=== PATIENT | male | born 1925 | race Caucasian/White ===

== ENCOUNTER 2016-12-10 12:02 | Emergency (ER) | payer OTHER, MEDICARE ==
[~2016-12-10] VITALS: Ht 177.8 cm; Wt 68.0 kg
[~2016-12-10 12:02] MED LIST: ACEON4 MG PO; ACIPHEX 20 MG T20 MG PO; APAP650 PO; ARICEPT 5 MG TAB5 MG PO; ASPIRIN EC81 M1 PO; ATIVAN0.5 MG PO; B-12500 MCG PO; CELEXA 20 MG TA20 MG PO; CELEXA40 MG PO; LEVOTHYROXIN0.025 MG PO; LIPITOR10 MG PO; LOPRESSOR PO; LOPRESSOR25 PO; MINIPRIN81 MG PO; MULTAQ400 MG PO; NAMENDA 10 MG T10 MG PO; NITROGLYCERIN0.4 MG SL; OMEPRAZOLE10 MG PO; OMEPRAZOLE20 MG PO; PRADAXA150 MG PO; PRADAXA75 MG PO
[2016-12-10 12:37] LABS: ABSOLUTE NEUTROPHILS 6.2 thou/uL (1.4-8.2); BASOPHILS 0.6 % (0.0-2.0); EOSINOPHILS 2.6 % (0.0-3.0); HEMOGLOBIN 14.6 gm/dL (14.0-18.0); LYMPHOCYTES 13.6 % (24.0-44.0); MCH 30.2 pg (26.0-34.0); MCV 88.8 fL (80.0-100.0); MONOCYTES 10.9 % (1.0-8.0); PLATELET COUNT 159 thou/uL (150-400); POLYS 72.3 % (36.0-66.0); RBC 4.85 mil/uL (4.50-6.00); RDW 13.9 % (10.5-14.5); WBC 8.6 thou/uL (4.0-11.0)
[2016-12-10 12:42] LABS: MANUAL DIFF NO
[2016-12-10 12:48] LABS: CALCIUM 9.2 mg/dL (8.5-10.1); CREATININE 1.7 mg/dL (0.6-1.3); POTASSIUM 4.5 mmol/L (3.5-5.1)
== END 2016-12-10 13:50 | disposition home or self-care (01) ==
LOC: ER 12:02
PROVIDERS: Emergency Medicine
DX: N28.9 Disorder of kidney and ureter, unspecified (principal); R53.83 Other fatigue; I10 Essential (primary) hypertension; E78.00 Pure hypercholesterolemia, unspecified; K21.9 Gastro-esophageal reflux disease without esophagitis; I48.91 Unspecified atrial fibrillation; Z87.891 Personal history of nicotine dependence; Z88.5 Allergy status to narcotic agent; Z95.5 Presence of coronary angioplasty implant and graft

== ENCOUNTER 2017-04-26 14:52 | Inpatient (IN) | payer OTHER, MEDICARE ==
[~2017-04-26] VITALS: Ht 172.7 cm; Wt 66.9 kg
--- NOTE | ~2017-04-26 | HC ---
[facility] [place] [address] CONSULTATION Name: ÁNGELA ANAYA MEME Room #: 421-P [facility] IN M.R.#: [id number] Admission: 04/26/17 Attend Phys: Kam Piedra Discharge: 04/29/17 Date of : [birth year] Report #: [id number] THIS REPORT FOR: //name// CC: David Piedra DATE OF SERVICE: 04/28/2017 HISTORY OF PRESENT ILLNESS: The patient is an 89-year-old white male premorbid history of dementia, lives in an assisted living facility at [facility]. He was admitted with nausea, vomiting, diarrhea, was noted to be weak and had a fever of 105. Diagnosed with toxic encephalopathy, colitis, dehydration. Apparently, there are a number of other residents from the nursing facility that were diagnosed with norovirus. He is debilitated but improving. We are seeing him in rehabilitation medicine consultation. PAST MEDICAL HISTORY: Includes hypertension, cardiac stent, Alzheimer's. Past medical history also includes GERD, DJD, 2 stents with angioplasty 2 years ago, neuropathy, Raynaud disease, pancreatitis, atrial fibrillation, elevated cholesterol. MEDICATIONS: Please see the full medication listing. ALLERGIES: MORPHINE. SOCIAL HISTORY: Lives at [facility] in the assisted living facility. He was premorbidly independent, ambulatory without a device. He needed help with his hearing aids and for a shower twice a week. He has 4 children that are closely involved. HABITS: Former tobacco smoker, quit greater than a year ago. No history of alcohol abuse. REVIEW OF SYSTEMS: No current complaints of chest pain, shortness of breath, abdominal discomfort. Denied any abdominal discomfort. No headache, bowel or bladder changes. Appears to be feeling better, but is still weak. No focal extremity pain complaints. The exam is somewhat limited with his dementia. PHYSICAL EXAMINATION: Pleasant 89-year-old thin, small statured white male in no obvious distress. Last recorded temperature 97.4, pulse 62, respirations 18, blood pressure 115/58. He is alert, pleasant. HEENT appeared benign. Facies are symmetric. Follows basic 1 step commands. Functional range of motion of both upper extremities with strength grade 4 to 4-/5. DTRs are trace to 1. Lower extremities, no focal calf swelling, functional range of motion with strength grade 4-/5. DTRs are trace to 1. No focal calf swelling. He has been min assist with sit to stand, although at times, he was contact guard. He has [facility] [address] [place] [address] CONSULTATION Name: ÁNGELA ANAYA Room #: 421-P [facility] IN ..#: [id number] Admission: 04/26/17 Attend Phys: Kam Piedra Discharge: 04/29/17 Date of : [birth year] Report #: [id number] been mod assist to ambulate 150 feet with handheld assistance, although he was at one time contact guard assistance. ASSESSMENT: An 89-year-old white male with the following problem list: 1. Generalized weakness and debilitation. 2. Viral flu with colitis. 3. Dehydration, which is improving. 4. Toxic encephalopathy superimposed on his significant premorbid dementia. 5. Hypertension. 6. Cardiac stents. PLAN: The patient unfortunately does not meet [address] inpatient rehabilitation criteria. Note the attending physician's plan for evaluation for custodial facility care. The family are not desiring of this and will more likely arrange for initial 24-hour care for him in the assisted living facility setting. Discussion was held with the patient's son and with case management. Thank you for asking us to assist in this patient's care. <ELECTRONICALLY SIGNED> By: David Enamorado MD 05/05/17 1515 1602 1946 David Enamorado MD /nt
--- NOTE | ~2017-04-26 | EKG ---
[address] [facility] [place] [address] ELECTROCARDIOGRAM REPORT Name: ÁNGELA ANAYA Room #: 421-P ADM IN M.R.#: [id number] Admission: 04/26/17 Attend Phys: Kam Piedra Discharge: Date of : [birth year] Report #: [id number] THIS REPORT FOR: //name// [facility] ED Test Date: 2017-04-26 Test Time: 15:11:17 Pat Name: ÁNGELA ANAYA Department: Room: [facility] Gender: M Pantograph Setter: KKEMMANUEL : 1925 Requested By: Gabriela Del Rosario Order Number: [id number] MD: Yoandy Grady Measurements Intervals [place] Rate: 65 P: 0 NE: 192 QRS: 37 QRSD: 133 T: 16 QT: 528 QTc: 550 Interpretive Statements Sinus rhythm Right bundle branch block Compared to ECG 02/21/2016 14:26:11 First degree AV block no longer present Electronically Signed On 04-26-2017 20:29:52 CDT by Yoandy Grady [email or web address] <ELECTRONICALLY SIGNED> By: Yoandy Grady MD 04/26/172028 10 10 Yoandy Grady MD /CYNTHIA
[2017-04-26 14:53] VITALS: BP 130/57
[2017-04-26 15:21] LABS: HEMATOCRIT 41.9 % (42.0-52.0); HEMOGLOBIN 14.4 gm/dL (14.0-18.0); MCH 30.6 pg (26.0-34.0); MCHC 34.3 g/dL (28.0-37.0); MCV 89.3 fL (80.0-100.0); PLATELET COUNT 154 thou/uL (150-400); RBC 4.69 mil/uL (4.50-6.00); RDW 13.5 % (10.5-14.5); WBC 7.4 thou/uL (4.0-11.0)
[2017-04-26 15:23] LABS: MANUAL DIFF YES
[2017-04-26 15:35] LABS: CALCIUM 9.3 mg/dL (8.5-10.1); CREATININE 1.9 mg/dL (0.7-1.3); POTASSIUM 4.3 mmol/L (3.5-5.1)
[2017-04-26 15:40] LABS: ALBUMIN 3.9 g/dL (3.4-5.0); TOTAL BILIRUBIN 1.1 mg/dL (<0.1-1.0); TOTAL PROTEIN 7.4 g/dL (6.4-8.2)
[2017-04-26 15:52] LABS: ABSOLUTE NEUTROPHILS 6.4 thou/uL (1.4-8.2); TOTAL CELL COUNT 100
[2017-04-26 16:12] LABS: URINE BILIRUBIN NEGATIVE (Negative); URINE BLOOD NEGATIVE (Negative); URINE COLOR YELLOW; URINE GLUCOSE-RANDOM* NEGATIVE (Negative); URINE KETONES 1+ (Negative); URINE NITRITE NEGATIVE (Negative); URINE PROTEIN (DIPSTICK) 1+ (Negative); URINE UROBILINOGEN 0.2 E.U./dl (0.2-1.0)
[2017-04-26 16:18] LABS: HYALINE CASTS 0-3 Few /LPF (None Seen); SQUAMOUS 4-10 Moderate /LPF (0-3)
[2017-04-26 16:19] LABS: BACTERIA None Seen /HPF (None Seen); CRYSTALS None Seen /LPF (None Seen); URINE RBC 0-2 Rare /HPF (0-2); URINE WBC 0-5 Rare /HPF (0-5)
[2017-04-26 18:18] VITALS: BP 106/46
[2017-04-26 19:50] VITALS: BP 113/57
[2017-04-26] MEDS ORDERED: ZYRTEC10 M4 PO (19:50)
[2017-04-26] MEDS ORDERED: HYDROCODON-ACE1 EAC8 PO (19:51)
[2017-04-26] MEDS ORDERED: MONTELUKAST SOD10 MG PO (19:55)
[2017-04-26] MEDS ORDERED: PATADAY2.5 ML INTRAOCULR (20:06)
[2017-04-26 23:53] VITALS: BP 102/51
[2017-04-27 03:51] VITALS: BP 109/54
[2017-04-27 07:25] VITALS: BP 102/53
[2017-04-27 15:20] VITALS: BP 124/56
[2017-04-27 20:00] VITALS: BP 104/56
[2017-04-28 04:52] LABS: ALBUMIN 3.1 g/dL (3.4-5.0); CALCIUM 8.1 mg/dL (8.5-10.1); CREATININE 1.5 mg/dL (0.7-1.3); PHOSPHORUS 2.2 mg/dL (2.5-4.9); POTASSIUM 3.4 mmol/L (3.5-5.1)
[2017-04-28 05:30] VITALS: BP 104/76
[2017-04-28 07:32] VITALS: BP 115/58
[2017-04-28 20:00] VITALS: BP 114/70
[2017-04-29 03:39] VITALS: BP 132/58
[2017-04-29 05:28] LABS: ALBUMIN 2.8 g/dL (3.4-5.0); CALCIUM 7.8 mg/dL (8.5-10.1); CREATININE 1.5 mg/dL (0.7-1.3); PHOSPHORUS 2.9 mg/dL (2.5-4.9); POTASSIUM 3.4 mmol/L (3.5-5.1)
[2017-04-29 07:35] VITALS: BP 131/76
[2017-04-29 10:23] VITALS: BP 131/76
[2017-04-29 10:46] VITALS: BP 131/76
[2017-04-29 14:38] VITALS: BP 131/76
== END 2017-04-29 12:00 | disposition home health service (06) | DRG 871 ==
LOC: ER 14:52 → EROBS 16:37 → 4E 16:37
PROVIDERS: Hospitalist; Physician Assistant
DX: A41.9 Sepsis, unspecified organism (principal); G92 Toxic encephalopathy; N17.9 Acute kidney failure, unspecified; I10 Essential (primary) hypertension; E78.5 Hyperlipidemia, unspecified; I25.5 Ischemic cardiomyopathy; K21.9 Gastro-esophageal reflux disease without esophagitis; M19.90 Unspecified osteoarthritis, unspecified site; G62.9 Polyneuropathy, unspecified; I48.91 Unspecified atrial fibrillation; K52.9 Noninfective gastroenteritis and colitis, unspecified; E86.0 Dehydration; G30.9 Alzheimer's disease, unspecified; F02.80 Dementia in other diseases classified elsewhere, unspecified severity, without behavioral disturbance, psychotic disturbance, mood disturbance, and anxiety; Z66 Do not resuscitate; I73.00 Raynaud's syndrome without gangrene; Z79.899 Other long term (current) drug therapy; Z98.62 Peripheral vascular angioplasty status; Z88.6 Allergy status to analgesic agent; Z87.891 Personal history of nicotine dependence
CPT/HCPCS: 10084

== ENCOUNTER 2017-05-02 10:52 | Inpatient (IN) | payer OTHER, MEDICARE ==
[~2017-05-02] VITALS: Ht 172.7 cm; Wt 67.0 kg
--- NOTE | ~2017-05-02 | EKG ---
[address] [employer] [address] ELECTROCARDIOGRAM REPORT Name: ÁNGELA ANAYA Room #: 216-P ADM IN M.R.#: [id number] Admission: 05/02/17 Attend Phys: Kam Piedra Discharge: Date of : [birth year] Report #: [id number] THIS REPORT FOR: //name// [facility] Test Date: 2017-05-06 Test Time: 07:02:30 Pat Name: ÁNGELA ANAYA Department: Room: 216 P Gender: M Air Drier: pradip : 1925 Requested By: John Yo Order Number: [id number] MD: John Yo Measurements Intervals [place] Rate: 101 P: [place]: QRS: 45 QRSD: 137 T: -35 QT: 439 QTc: 570 Interpretive Statements Atrial fibrillation Right bundle branch block Baseline wander in lead(s) V3 Compared to ECG 05/05/2017 09:18:04 No significant change was found Electronically Signed On 05-06-2017 8:45:47 CDT by John Yo [email or web address] <ELECTRONICALLY SIGNED> By: John Yo MD, [facility] 05/06/17 0845 1 1 John Yo MD, [facility] /EPI
--- NOTE | ~2017-05-02 | 2DMMODE ---
[facility] [address] [place] [address] 2 D/M-MODE ECHOCARDIOGRAM Name: ÁNGELA ANAYA Room #: 216-P ADM IN M.R.#: [id number] Admission: 05/02/17 Attend Phys: Kam Reilly Discharge: Date of : [birth year] Date of Service: 05/06/17 0937 Report #: [id number] THIS REPORT FOR: //name// APPROVED REPORT Study performed: 05/06/2017 07:43:38 EXAM: Comprehensive 2D, Doppler, and color-flow Echocardiogram Patient Location: Bedside Room #: 216 Status: routine Other Information Study Quality: Adequate Indications CHF, aortic stenosis. Hx: ISCM, stents, Afib, HTN, HLP, tobacco abuse 2D Dimensions RVDd: 40.86 mm LVEF(%): 62.25 (>50%) IVSd: 9.99 (7-11mm) LVOT Diam: 20.76 (18-24mm) LVDd: 36.93 mm PWd: 9.99 (7-11mm) Ascending Ao: 32.08 (22-36mm) LVDs: 24.78 (25-40mm) Aortic Root: 36.12 mm Savage's LVEF: 62.25 % Volumes Left Atrial Volume (Systole) Single Plane 4CH: 66.79 mL Single Plane 2CH: 57.74 mL LA ESV Index: 37.00 mL/m2 Aortic Valve AoV Peak Shayan.: 3.08 m/s AO Peak Gr.: 38.39 mmHg LVOT Max P.77 mmHg AO Mean Gr.: 22.59 mmHg AO V2 Mean: 2.26 m/s LVOT Max V: 0.83 m/s AO V2 VTI: 52.21 cm DIMITRIOS Vmax: 0.91 cm2 Mitral Valve MV Decel. Time: 162.51 ms MV E Max Shayan.: 1.00 m/s [facility] [place] [address] 2 D/M-MODE ECHOCARDIOGRAM Name: ÁNGELA ANAYA Room #: 216-P [facility] IN M.R.#: [id number] Admission: 05/02/17 Attend Phys: Kam Reilly Discharge: Date of : [birth year] Date of Service: 05/06/17 0937 Report #: [id number] Pulmonary Valve PV Peak Shayan.: 1.07 m/s PV Peak Gr.: 4.61 mmHg Tricuspid Valve TR Peak Shayan.: 3.03 m/s RAP Estimate: 5.00 mmHg TR Peak Gr.: 37.22 mmHg PA Pressure: 42.00 mmHg Left Ventricle The left ventricle is normal size. There is normal left ventricular wall thickness. Left ventricular systolic function is normal. LVEF is 55-60%. This study is not technically sufficient to allow evaluation of the LV diastolic function due to atrial fibrillation. Right Ventricle Right ventricle is mildly dilated. Atria Left atrium is dilated. PFO is noted. Right atrium is dilated. Aortic Valve Aortic valve is severely calcified. No aortic regurgitation is present. There is severe valvular aortic stenosis. Calculated aortic valve area is 0.9 cm2 with maximum pressure gradient of 39 mmHg and mean pressure gradient of 23 mmHg. Mitral Valve Mitral valve leaflets are mildly thickened. Mild mitral annular calcification. Trace mitral regurgitation. No evidence of mitral valve stenosis. Tricuspid Valve The tricuspid valve is normal in structure. There is moderate tricuspid regurgitation. The right atrial pressure is estimated at 5 mmHg. There is moderate pulmonary hypertension with an estimated PAP of 42mmHg. Pulmonic Valve The pulmonary valve is normal in structure. Trace pulmonic regurgitation. Great Vessels The aortic root is normal in size. IVC is normal in size and collapses >50% with inspiration. [facility] [address] [place] [address] 2 D/M-MODE ECHOCARDIOGRAM Name: ÁNGELA ANAYA Room #: 216-P [facility] IN ..#: [id number] Admission: 05/02/17 Attend Phys: Kam Reilly Discharge: Date of : [birth year] Date of Service: 05/06/17 0937 Report #: [id number] Pericardium There is no pericardial effusion. <Conclusion> Left ventricular systolic function is normal. LVEF is 55-60%. Both atria are dilated. RV is mildly dilated Aortic valve is severely calcified and stenotic. Calculated aortic valve area is 0.9 cm2 with maximum pressure gradient of 39 mmHg and mean pressure gradient of 23 mmHg. Mitral valve leaflets are mildly thickened. Mild mitral annular calcification. PFO is noted. Pulmonary artery pressure of 40-45mmHg There is no pericardial effusion. <ELECTRONICALLY SIGNED> By: John Yo MD, [facility] 05/06/1737 6 John Yo MD, FACC /INF
--- NOTE | ~2017-05-02 | HC ---
[facility] [place] [address] [place] [address] CONSULTATION Name: HÉCTORÁNGELA MEME Room #: 216-P ADM IN M.R.#: [id number] Admission: 05/02/17 Attend Phys: Kam Piedra Discharge: Date of : [birth year] Report #: [id number] THIS REPORT FOR: //name// CC: David Piedra DATE OF SERVICE: 05/05/2017 DATE OF SERVICE: 05/05/2017 REASON FOR CONSULTATION: Acute respiratory failure. IMPRESSION: 1. Acute respiratory failure, possible congestive heart failure, possible aspiration pneumonia. 2. Pleural effusion, right greater than left. 3. Atrial fibrillation. 4. Bzxvf-zr-xnwllte congestive heart failure. 5. Aortic stenosis, severe. 6. Coronary artery disease with stent. 7. Abdominal pain, improved. 8. Hypertension. 9. History of transient ischemic attack. 10. Dementia. PLAN: Continue aerosol therapy, may use BiPAP at night and p.r.n. Discussed with daughters at bedside. We will do aerosol therapy. We will do thoracentesis in a.m. if stable. I have seen twice this morning and this evening. DVT prophylaxis. HISTORY OF PRESENT ILLNESS: A very pleasant 89-year-old male comes in with progressive shortness breath, cough, possible aspiration pneumonia, has been treated for this morning and had rapid atrial fib, decompensated, transferred down to the CCU. PAST MEDICAL HISTORY: 1. Coronary artery disease with stent. 2. Paroxysmal atrial fibrillation. 3. Severe aortic stenosis. 4. Dementia. 5. Moderate carotid disease. 6. History of tachy-gabo. 7. History of TIA. ALLERGIES: MORPHINE and AMIODARONE. [facility] [address] [place] [address] CONSULTATION Name: ÁNGELA ANAYA Room #: 216-P [facility] IN M.R.#: [id number] Admission: 05/02/17 Attend Phys: Kam Piedra Discharge: Date of : [birth year] Report #: [id number] MEDICATIONS: List was reviewed. SOCIAL HISTORY: By report lived at [facility] in the past. FAMILY HISTORY: Noncontributory. SOCIAL HISTORY: Quit smoking greater than 50 years ago. Negative significant EtOH. REVIEW OF SYSTEMS: Shortness of breath, cough. No hemoptysis, hematemesis or hematuria. Positive edema and dementia. PHYSICAL EXAMINATION: VITAL SIGNS: T-max 100.3, pulse 130s, respirations 20s, BP 157/93. EYES: Negative icterus. NECK: Negative JVD. LUNGS: Showed coarse crackles bilateral. CARDIOVASCULAR: , tachy. ABDOMEN: Bowel sounds present. EXTREMITIES: Showed no calf tenderness. Moved all extremities. LABORATORY DATA: Urine legionella and strep negative. Lactate 24. ProBNP 11,068, INR 1.1. A pH 7.49, pCO2 of 31, pO2 [address] PE protocol showed no emboli. Emphysematous changes. By: 1833 0022 Lucina Phillips MD /jeremias
--- NOTE | ~2017-05-02 | EKG ---
[address] [address] ELECTROCARDIOGRAM REPORT Name: ÁNGELA ANAYA MEME Room #: 216-P ADM IN M.R.#: [id number] Admission: 05/02/17 Attend Phys: Kam Piedra Discharge: Date of : [birth year] Report #: [id number] THIS REPORT FOR: //name// [facility] Test Date: 2017-05-05 Test Time: 09:18:04 Pat Name: ÁNGELA ANAYA Department: Room: 216 Gender: Supervisor Electronics Inspection: Ernestina MCCALUEY : 1925 Requested By: Kam Piedra Order Number: [id number] MD: Yoandy Grady Measurements Intervals [place] Rate: 114 P: [place]: QRS: 45 QRSD: 126 T: -7 QT: 363 QTc: 501 Interpretive Statements Atrial fibrillation Right bundle branch block ST depr, consider ischemia, anterolateral lds Baseline wander in lead(s) II,III,aVF,V2 Compared to ECG 05/02/2017 10:59:28 No significant changes Electronically Signed On 05-05-2017 21:57:21 CDT by Yoandy Grady [email or web address] <ELECTRONICALLY SIGNED> By: Yoandy Grady MD 05/05/17 2157 7 7 Yoandy Grady MD /EPI
--- NOTE | ~2017-05-02 | EKG ---
[address] [place] [employer] [place] [address] ELECTROCARDIOGRAM REPORT Name: ÁNGELA NAAYA MEME Room #: 420-P ADM IN M.R.#: [id number] Admission: 05/02/17 Attend Phys: Kam Piedra Discharge: Date of : [birth year] Report #: [id number] THIS REPORT FOR: //name// [facility] ED Test Date: 2017-05-02 Test Time: 10:59:28 Pat Name: ÁNGELA ANAYA Department: Room: [facility] Gender: M Wireless Sales Representative: Marla Underwood : 1925 Requested By: Rene Bolton Order Number: [id number] MD: John Yo Measurements Intervals [place] Rate: 109 P: NE: QRS: 18 QRSD: 143 T: -17 QT: 401 QTc: 541 Interpretive Statements Atrial fibrillation Right bundle branch block ST depr, consider ischemia, anterolateral lds Baseline wander in lead(s) I Compared to ECG 04/26/2017 15:11:17 Possible ischemia now present Sinus rhythm no longer present Electronically Signed On 05-03-2017 15:55:43 CDT by John Yo [email or web address] <ELECTRONICALLY SIGNED> By: John Yo MD, [facility] 05/03/17 1555 1059 1059 John Yo MD, [facility] /EPI
[~2017-05-02 10:52] MED LIST changes: +HYDROCODON-ACE1 EAC8 PO; +MONTELUKAST SOD10 MG PO; +PATADAY2.5 ML INTRAOCULR; +ZYRTEC10 M4 PO
[2017-05-02 10:53] VITALS: BP 142/78
[2017-05-02 11:48] LABS: HEMATOCRIT 35.3 % (42.0-52.0); HEMOGLOBIN 12.3 gm/dL (14.0-18.0); MCH 30.8 pg (26.0-34.0); MCHC 34.8 g/dL (28.0-37.0); MCV 88.4 fL (80.0-100.0); PLATELET COUNT 173 thou/uL (150-400); RDW 13.5 % (10.5-14.5); WBC 11.4 thou/uL (4.0-11.0)
[2017-05-02 12:02] LABS: MANUAL DIFF YES
[2017-05-02 12:29] LABS: CALCIUM 8.5 mg/dL (8.5-10.1); CREATININE 1.2 mg/dL (0.7-1.3); POTASSIUM 3.1 mmol/L (3.5-5.1)
[2017-05-02 12:38] LABS: TROPONIN-I 0.07 ng/mL (<0.04-0.07)
[2017-05-02 13:06] LABS: ABSOLUTE NEUTROPHILS 9.5 thou/uL (1.4-8.2); ATYPICAL LYMPHS 1 %; TOTAL CELL COUNT 100
[2017-05-02 13:50] VITALS: BP 168/104
[2017-05-02 14:29] VITALS: BP 159/93
[2017-05-02 15:40] VITALS: BP 163/93
[2017-05-02 17:11] VITALS: BP 157/84
[2017-05-02 20:00] VITALS: BP 145/85
[2017-05-03 04:30] VITALS: BP 146/87
[2017-05-03 07:46] VITALS: BP 156/85
[2017-05-03 16:47] VITALS: BP 112/66
[2017-05-03 19:44] VITALS: BP 136/84
[2017-05-04 04:00] VITALS: BP 154/88
[2017-05-04 06:34] LABS: ALBUMIN 2.3 g/dL (3.4-5.0); CALCIUM 7.7 mg/dL (8.5-10.1); CREATININE 1.2 mg/dL (0.7-1.3); PHOSPHORUS 2.3 mg/dL (2.5-4.9); POTASSIUM 3.5 mmol/L (3.5-5.1)
[2017-05-04 09:11] VITALS: BP 127/70
[2017-05-04 15:18] VITALS: BP 97/52
[2017-05-04 17:29] VITALS: BP 111/89
[2017-05-04 20:00] VITALS: BP 137/85
[2017-05-05 04:30] VITALS: BP 134/72
[2017-05-05 06:41] LABS: HEMATOCRIT 31.5 % (42.0-52.0); HEMOGLOBIN 10.8 gm/dL (14.0-18.0); MCH 30.4 pg (26.0-34.0); MCHC 34.2 g/dL (28.0-37.0); MCV 89.1 fL (80.0-100.0); RBC 3.54 mil/uL (4.50-6.00); RDW 14.1 % (10.5-14.5); WBC 8.4 thou/uL (4.0-11.0)
[2017-05-05 07:50] VITALS: BP 150/92
[2017-05-05 11:57] LABS: ABG SAMPLE TYPE ARTERIAL; BE(vivo) 0.4 mmol/L (-2 to +3); HCO3 22.9 mmol/L (22.0-26.0); LACTATE 2.05 mmol/L (0.5-2.0); O2(CT) 15.5 mL/dL (15.0-23.0); PCO2 30.6 mmHg (35.0-45.0); pH 7.492 (7.360-7.450); sO2 86.2 % (92.0-98.0); tCO2 23.8 mmol/L (24.0-30.0)
[2017-05-05 11:58] LABS: O2Hb 84.8 % (92.0-98.0); PO2 46.1 mmHg (80.0-100.0); STICK SITE L.RADIAL
[2017-05-05 12:15] VITALS: BP 157/93
[2017-05-05 12:21] LABS: APTT 29.1 Seconds (24.5-32.8); INR 1.1; PROTIME 11.9 Seconds (9.3-11.4)
[2017-05-05 14:19] LABS: URINE BILIRUBIN NEGATIVE (Negative); URINE BLOOD 2+ (Negative); URINE COLOR YELLOW; URINE GLUCOSE-RANDOM* NEGATIVE (Negative); URINE KETONES NEGATIVE (Negative); URINE NITRITE NEGATIVE (Negative); URINE PROTEIN (DIPSTICK) NEGATIVE (Negative); URINE SPECIFIC GRAVITY <= 1.005 (1.003-1.035); URINE UROBILINOGEN 0.2 E.U./dl (0.2-1.0)
[2017-05-05 14:39] LABS: BACTERIA 1-9 Few /HPF (None Seen); CASTS None Seen /LPF (None Seen); CRYSTALS None Seen /LPF (None Seen); SQUAMOUS 0-3 Few /LPF (0-3); URINE WBC 0-5 Rare /HPF (0-5)
[2017-05-05 16:32] VITALS: BP 114/70
[2017-05-05 19:25] VITALS: BP 127/71
[2017-05-05 23:23] VITALS: BP 138/61
[2017-05-06 03:43] VITALS: BP 118/63
[2017-05-06 08:34] LABS: CALCIUM 8.7 mg/dL (8.5-10.1); CREATININE 1.5 mg/dL (0.7-1.3); POTASSIUM 3.1 mmol/L (3.5-5.1)
[2017-05-06 08:40] VITALS: BP 131/81
[2017-05-06 13:15] VITALS: BP 127/91
[2017-05-06 15:55] VITALS: BP 137/76
[2017-05-06 19:46] VITALS: BP 147/85
[2017-05-07 03:04] LABS: HEMATOCRIT 34.8 % (42.0-52.0); HEMOGLOBIN 11.9 gm/dL (14.0-18.0); MCH 29.8 pg (26.0-34.0); MCHC 34.3 g/dL (28.0-37.0); MCV 87.1 fL (80.0-100.0); PLATELET COUNT 283 thou/uL (150-400); RBC 3.99 mil/uL (4.50-6.00); RDW 13.7 % (10.5-14.5); WBC 14.9 thou/uL (4.0-11.0)
[2017-05-07 03:06] LABS: MANUAL DIFF YES
[2017-05-07 03:10] LABS: CALCIUM 8.7 mg/dL (8.5-10.1); CREATININE 1.5 mg/dL (0.7-1.3); MAGNESIUM 1.7 mg/dL (1.8-2.4)
[2017-05-07 03:13] LABS: POTASSIUM 2.9 mmol/L (3.5-5.1)
[2017-05-07 04:01] LABS: ABSOLUTE NEUTROPHILS 12.5 thou/uL (1.4-8.2); TOTAL CELL COUNT 100
[2017-05-07 04:30] VITALS: BP 120/61
[2017-05-07 07:49] VITALS: BP 125/79
[2017-05-07 10:13] LABS: GLOMERULR BASEM MEMBRN AB 5 units (0-20)
[2017-05-07 16:12] LABS: c-ANCA <1:20 titer (Neg:<1:20); p-ANCA <1:20 titer (Neg:<1:20)
[2017-05-08] MEDS ORDERED: PERCOCET 10-321 EACH PO (08:49)
[2017-05-08] MEDS ORDERED: ATIVAN1 MG PO (08:49)
== END 2017-05-08 13:52 | DRG 177 ==
LOC: ER 10:52 → 4E 14:09 → 2N 05-05 10:08
PROVIDERS: Emergency Medicine; Hospitalist; Internal Medicine; Internal Medicine Pulmonary Disease
DX: J69.0 Pneumonitis due to inhalation of food and vomit (principal); J96.01 Acute respiratory failure with hypoxia; I50.33 Acute on chronic diastolic (congestive) heart failure; G93.41 Metabolic encephalopathy; J90 Pleural effusion, not elsewhere classified; E78.00 Pure hypercholesterolemia, unspecified; I25.10 Atherosclerotic heart disease of native coronary artery without angina pectoris; I11.0 Hypertensive heart disease with heart failure; I25.5 Ischemic cardiomyopathy; K21.9 Gastro-esophageal reflux disease without esophagitis; M19.90 Unspecified osteoarthritis, unspecified site; G62.9 Polyneuropathy, unspecified; G30.9 Alzheimer's disease, unspecified; Z66 Do not resuscitate; Z51.5 Encounter for palliative care; F02.80 Dementia in other diseases classified elsewhere, unspecified severity, without behavioral disturbance, psychotic disturbance, mood disturbance, and anxiety; I35.0 Nonrheumatic aortic (valve) stenosis; E03.9 Hypothyroidism, unspecified; I48.0 Paroxysmal atrial fibrillation; I65.29 Occlusion and stenosis of unspecified carotid artery; E87.6 Hypokalemia; R13.10 Dysphagia, unspecified; Z79.899 Other long term (current) drug therapy; Z82.49 Family history of ischemic heart disease and other diseases of the circulatory system; Z98.62 Peripheral vascular angioplasty status; Z87.891 Personal history of nicotine dependence; Z88.6 Allergy status to analgesic agent; Z86.73 Personal history of transient ischemic attack (TIA), and cerebral infarction without residual deficits; Z88.8 Allergy status to other drugs, medicaments and biological substances
CPT/HCPCS: 10081; 10084